=== PATIENT | female | born 2000 | race Caucasian/White ===

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

== ENCOUNTER 2020-05-01 07:25 | Inpatient (IN) | payer MEDICAID, SELFPAY ==
[2020-05-01] VITALS (70 sets, daily range): BP systolic 0–145; BP diastolic 0–82; PULSE 76–114; RESP 16–20; TEMP 36.2–36.8; O2SAT 96–99; BMI 35.6
[2020-05-01 05:28] LABS: Amphetamines Screen Urine Negative (Negative); Barbiturates Screen Urine Negative (Negative); Benzodiazepines Screen Urine Negative (Negative); Cocaine Screen Urine Negative (Negative); Opiate Screen Urine Negative (Negative); PCP Screen Urine Negative (Negative); THC Screen Urine Negative (Negative)
[2020-05-01 08:03] LABS: Basophils # 0.1 10^3/uL (0.0-0.1); Basophils % 0.3 %; Eosinophils % 0.2 %; Hematocrit 36.5 % (37.0-47.0); Hemoglobin 12.2 g/dL (11.5-15.3); Lymphocytes % 9.7 %; Mean Corpuscular HGB Conc 33.4 g/dL (30.0-36.0); Mean Corpuscular Volume 89.9 fL (81-99); Monocytes # 1.1 10^3/uL (0.2-0.9); Monocytes % 5.5 %; Neutrophils # 17.4 10^3/uL (1.8-8.0); Neutrophils % 83.7 %; Nucleated Red Blood Cells % 0 %; Platelet Count 209 10^3/cmm (130-400); Red Blood Count 4.06 10^6/uL (4.1-5.3); Red Cell Distribution Width 13.1 % (12.1-15.1); White Blood Count 20.8 10^3/uL (4.5-13.0)
--- NOTE | 2020-05-01 08:43 | P.HP_ITS ---
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 Originally she had expressed a desire to have a trial of labor even though she had a previous . After having contractions this morning, she changed her mind and wishes to have a C- section instead. Her has been remarkable for having THC positive drug screens. She currently is working with [employer] to get custody of her previous child . She is going to rehab at this time as well and has been free of any marijuana in her system for the majority of her . Present Details : 2 Para: 1 Labs Rubella: Immune RPR: Negative GBS: Negative Review of Systems General: Reports: 10 or more systems reviewed and unremarkable except in HPI and below Const: Reports: fatigue; Denies: fever(s) Eyes: Denies: change in vision Card: Denies: chest pain : Reports: pelvic pain Musc: Reports: back pain Nando/Lymph: Denies: easy bruising Medications/Allergies Allergies Allergy/AdvReac Type Severity Reaction Status Date / Time azithromycin [From Zithromax] Allergy ALGY-Rash Verified 05/01/20 05:23 Vitals/I&O/Wt Last Vital Signs Temp 98.3 F 05/01/20 04:59 Pulse 97 05/01/20 08:39 BP 145/60 05/01/20 08:39 Weight last 48 hrs Weight 221 lb Physical Exam Const: COMMON NORMALS: patient oriented x3 and alert HENMT: COMMON NORMALS: moist oral mucous membranes HEAD & SCALP: normal to inspection Chest: COMMONS NORMALS: normal inspection of the chest Resp: COMMON NORMALS: clear to auscultation bilaterally AUSCULTATION: clear to auscultation bilaterally Cardio: COMMON NORMALS: regular rate and regular rhythm RATE: regular rate RHYTHM: regular rhythm GI: INSPECTION: Yes normal to inspection and Yes other (Gravid) Extremity: COMMON NORMALS: normal to inspection GENERAL: Yes edema (Trace) Neuro: COMMON NORMALS: patient oriented x3, moves all extremities and no sensory deficits noted SENSORIUM/ORIENTATION: Yes alert Psych: COMMON NORMALS: mental status grossly normal Skin: COMMON NORMALS: no rashes or lesions noted GENERAL SKIN EXAM: no rashes or lesions noted Data : 05/01/20 07:35 A&P Assessment and plan (1) 40 weeks gestation of : We discussed the risks of a good and the risk of bleeding, infection, and damage to intra-abdominal organs. Both she and her significant other agreed to proceed with a as described. Status: Acute (2) History of : Status: Acute (3) Positive urine drug screen: Status: Acute (4) Active labor at term: Status: Acute Attestations Medical Necessity Statement*: I anticipate routine and [id number] care Coding Level of Care Code Acute Technical Account Executive for Chg Fwd Diagnoses 40 weeks gestation of Z3A.40 History of Z98.891 Positive urine drug screen R82.5 Active labor at term
[2020-05-01] MEDS: lactated ringers 1,000 ML 999 ML IV ×2 (08:53→11:12)
--- NOTE | 2020-05-01 08:54 | P.ANESASSM_ITS ---
Pre-Anesthetic Assessment Pre-Anesthetic Assessment: Height/Weight: Height 1.68 m Weight 100.244 kg Temp Pulse BP 98.3 F 97 0/0 05/01/20 04:59 05/01/20 08:39 05/01/20 08:52 Social: Social History: Tobacco and No alcohol Exam: Pre-Anes Outpt Exam: alert, oriented x 3, clear to auscultation bilaterally and regular rate & rhythm Airway: Submandibular: WNL Cervical ROM: WNL MP: 2 Dentition: Other (teeth ok) History/ROS: No significant history except as noted Pulmonary: Pulmonary: Asthma CV/HEM: CV/HEM: None reported : : None reported Hepatic: Hepatic: None reported GI: GI: GERD Metabolic: Metabolic: None reported Musc/skel: Musc/skel: None reported Neuropsych: Neuropsych: Anxiety and Depression Anesthetic Plan: ASA status: 2 Anesthesia: Anesthesia Evaluation and Eval. for regional block Risk of > 500 ml blood loss (7ml/kg in children): Yes, adequate IV access and fluids planned Meds/Allergies Current Medications: Current Medications Generic Name Dose Route Start Last Admin Trade Name Freq PRN Reason Stop Dose Admin Lactated Ringer's 1,000 mls @ 999 m ls/hr 05/01/20 07:52 05/01/20 08:53 Lactated Ringers IV 999 mls/hr .Q1H1M PRN Administration HYDR Ropivacaine 200 mg in 100 mls @ 13 mls/hr 05/01/20 08:00 05/01/20 08:54 Naropin Premix EPIDURAL 13 mls/hr .Q7H42M JOSE Administration ON LICENSE OF [facility] Anesthesia Female Reproductive History: : 2 Data Anesthesia CBC & Chem 7: 05/01/20 07:35 Other Labs: Laboratory Results - last 48 hr 05/01/20 05/01/20 05:15 07:35 WBC 20.8 H RBC 4.06 L Hgb 12.2 Hct 36.5 L MCV 89.9 MCH 30.0 MCHC 33.4 RDW 13.1 Plt Count 209 MPV 12.0 H Neut % (Auto) 83.7 Lymph % (Auto) 9.7 [place] % (Auto) 5.5 Eos % (Auto) 0.2 Baso % (Auto) 0.3 Neut # (Auto) 17.4 H Lymph # (Auto) 2.0 [place] # (Auto) 1.1 H Eos # (Auto) 0.0 Baso # (Auto) 0.1 Nucleated RBC % (auto) 0 Nucleated RBCs # 0.0 Urine Opiates Screen Negative Ur Barbiturates Screen Negative Ur Phencyclidine Scrn Negative Ur Amphetamines Screen Negative U Benzodiazepines Scrn Negative Urine Cocaine Screen Negative U Marijuana (THC) Screen Negative Cardiac Studies: No Data to Display
--- NOTE | 2020-05-01 09:15 | ANES.PROC ---
Anesthesia Procedures Procedure/Date: 05/01/20 Epidural: Time Out Performed: Yes Consents Signed: Procedure Consent Consent: requested by attending/covering physician, risks and benefits reviewed and patient agrees to proceed Lumbar Level: L4-L5 Epidural position: sitting Epidural procedure: sterile prep of area, 1% lidocaine to numb the area, 18 g needle, test dose given, 1.5% xylocaine 1:200k epi (5ml), placed PCEA, no systemic response, sterile dressing applied, L.U.D. no apparent complications and 0.2% Ropiavacaine @ mls/hr (13)
[2020-05-01] MEDS: metoclopramide 5 mg/mL SDV 2 mL 10 MG IV (11:10)
[2020-05-01] MEDS: famotidine 20 mg/2 mL INJ IVP (11:11)
--- NOTE | 2020-05-01 12:29 | PM.OP ---
Operative Report Date of procedure: May 01, 2020 Pre-op Diagnosis: 19-year-old 2 para 1-0-0-1 with an estimated gestational age of 40 weeks in active labor with history of Post-op diagnosis: same Procedure Done: Lower transverse section Specimens removed/disposition: Male infant with a weight of 7 pounds 7-1/2 ounces and Apgars of 8 9 2. Placenta with three-vessel cord delivered intact Anesthesia: Epidural Estimated blood loss (mL): 600 Complications: None Condition: stable Disposition: floor (OB) Brief History: Refer to history and physical Procedure: The patient was brought back to the operating room where she was prepped and draped in usual sterile fashion. Anesthesia was found to be adequate. A lower transverse skin incision was then made with a #10 blade. I then dissected down to the underlying subcutaneous tissue until arriving at the prerectal fascia. The fascia was then nicked with the scalpel bilaterally. The fascial incisions were then carried laterally with Olivo scissors. Attention was then turned to the superior aspect of the incision which was grasped with kochers and tented up away from the underlying rectus abdominis muscles. The muscles were then dissected away from the fascia manually, and later with Olivo scissors. Attention was then turned to the inferior aspect of the incision, and the fascia was dissected away from the underlying muscle in similar fashion. The rectus abdominis muscles were then spread manually. The peritoneum was entered manually. Excellent visualization of the uterus was noted. A lower transverse uterine incision was then made with a #10 blade. Upon arriving at the intrauterine cavity, the uterine incision was then extended manually. The was noted to be in vertex position. Despite multiple attempts, we had difficulty delivering the baby's head. As result I use a vacuum. It was placed for about 10 seconds to remove the child. After delivery of the head, the mouth and nose were suctioned at the site of the incision. There was no meconium. There was no nuchal cord. The remainder of the body was then delivered and placed on the abdomen. The cord was cut and clamped. The baby was then handed to the waiting nurse. The placenta was removed intact. The uterus was externalized. The intrauterine cavity was cleansed of any remaining debris. The uterine incision was reapproximated in 2 layers. The first layer was performed with 0 Vicryl in a running locked stitch. The second layer was an imbricating stitch also using 0 Vicryl. The uterus was replaced into the abdomen. The peritoneum was then irrigated with warm saline. I reexamined the uterine incision and found it to be hemostatic. The rectus abdominis muscles were then reapproximated using 0 Vicryl in a running stitch. The fascia was then reapproximated using 0 Vicryl in running stitch. The subcutaneous tissue was then reapproximated using 0 Vicryl in a running stitch. The skin was reapproximated using donell. A sterile dressing was placed. All counts were correct x2. Both the mother and baby were in stable condition.
--- NOTE | 2020-05-01 17:43 | PC.NURSE ---
THEY DO NOT HAVE CUSTODY OF OLDER CHILD AND HAS OPEN DFS CASE ON HIM.
--- NOTE | 2020-05-01 18:02 | PC.NURSE ---
1745 PT UP TO CHAIR, PADS CHANGED.ENCOURAGED HER TO FEED HER BABY, TOLD HER IF SHE HAD TROUBLE GETTING HIM TO EAT TO CALL ME SINCE HE HAS NOT EATEN SINCE 1330. PT VOICED UNDERSTANDING.
[2020-05-01] MEDS: ketorolac 30 mg/mL INJ IVP (20:01)
[2020-05-02 00:42] LABS: Hematocrit 31.4 % (37.0-47.0); Hemoglobin 10.2 g/dL (11.5-15.3); Mean Corpuscular HGB Conc 32.5 g/dL (30.0-36.0); Mean Corpuscular Hemoglobin 29.8 pg (28.0-34.0); Mean Corpuscular Volume 91.8 fL (81-99); Mean Platelet Volume 11.6 fL (7.4-10.4); Platelet Count 181 10^3/cmm (130-400); Red Blood Count 3.42 10^6/uL (4.1-5.3); Red Cell Distribution Width 13.2 % (12.1-15.1); White Blood Count 21.4 10^3/uL (4.5-13.0)
[2020-05-02 02:20] VITALS: BP 99/59; PULSE 92; RESP 16
[2020-05-02 06:00] VITALS: BP 108/69; PULSE 84; RESP 16; TEMP 36.7; O2SAT 98
[2020-05-02] MEDS: prenatal vitamin Capsule 1 CAP PO (09:07)
[2020-05-02] MEDS: docusate sodium 100 mg Capsule PO (09:07)
[2020-05-02 10:00] VITALS: BP 107/72; PULSE 94; RESP 16; TEMP 36.6; O2SAT 97
--- NOTE | 2020-05-02 11:47 | ANE.PACU2 ---
Inpatient post-anesthesia follow up: Airway intact: Yes Vital signs: Temperature 98.1 F Pulse Rate 84 Respiratory Rate 16 Blood Pressure 108/69 Pulse Oximetry 98 Oxygen Delivery Me thod Room Air Oxygen Flow Rate Fraction of Inspir ed Oxygen Hydration adequate: No Nausea and vomiting: No Mental status: Baseline
[2020-05-02 15:42] VITALS: BP 104/62; PULSE 101; RESP 16; TEMP 36.4; O2SAT 97
--- NOTE | 2020-05-02 16:59 | PM.OBGYPN ---
WAREHOUSE SORTER Subjective Subjective: Interval history: The patient is doing well. Her bleeding has been minimal. Her pain has been moderate. She has been moving some with some encouragement from the nurses. Labor: Station: -3 Amniotic Membrane Status: Bulging Monitor Mode: External Contraction Pattern: Regular Status: Category l Vitals/I&O/Wt Last Vital Signs Temp 97.5 F L 05/02/20 15:42 Pulse 101 H 05/02/20 15:42 Resp 16 05/02/20 15:42 BP 104/62 05/02/20 15:42 Pulse Ox 97 05/02/20 15:42 05/02/20 05/02/20 05/02/20 06:59 14:59 22:59 Output Total 1050 / 2300 900 / 900 300 / 1200 Balance -1050 / -300 -900 / -900 -300 / -1200 Weight last 48 hrs Weight 221 lb Physical Exam Narrative: EXAM NARRATIVE: She is in no acute distress Lungs are clear auscultation bilaterally Her heart has a regular rate and rhythm Her fundus is below the umbilicus and firm Her dressing is clean, dry and intact Her extremities have trace edema Urinary Catheter Management^: Cervantes: Cath Placed During This Visit: yes Reason for Continuing Indwelling Catheter: Perioperative Use in Selected Surgeries Urinary Catheter Date of Insertion: 05/01/20 Urinary Catheter Time of Insertion: : Data : 05/02/20 00:31 A&P Assessment and plan (1) Status post : The patient appears to be recovering well from her . If all goes well anticipate she will be discharged home tomorrow afternoon. Status: Acute (2) 40 weeks gestation of : Status: Acute Attestations Medical Necessity Statement*: Anticipate routine post care. Coding Level of Care Code Acute Sewage Screen Operator for Chg Fwd Diagnoses Status post Z98.891 40 weeks gestation of Z3A.40
[2020-05-02 22:45] VITALS: BP 108/67; PULSE 92; RESP 18
[2020-05-03] MEDS: acetaminophen 325 mg Tablet 650 MG PO ×2 (02:23→12:22)
[2020-05-03 04:39] VITALS: BP 111/68; PULSE 94; RESP 17
--- NOTE | 2020-05-03 07:58 | PM.OBGYDC ---
Discharge Providers AUTHORIZATION MANAGER Date of Admission: 05/01/20 07:25 Date of Discharge: 05/03/20 Attending Provider at Admission: Noah Shileds MD Attending Provider at Discharge: Noah Shields MD Primary Care Provider: Noah Shields MD Diagnoses at Discharge Discharge Diagnosis (1) Status post : Status: Acute (2) 40 weeks gestation of : Status: Acute Reason for Visit Reason for Visit: Contractions Hospital Course Discharge Summary: The patient is a 19-year-old 2 with a history of a previous who presented to the hospital in active labor. Shortly after arriving, she decided that she did not want to proceed with her . As result she was scheduled for a . The was unremarkable. Her course is also been unremarkable. She has had minimal bleeding. Her pain is been moderately well controlled. Her vitals have been appropriate. DFS was contacted because she does have a history of THC positive drug screens. She elected to see them at her home. Information Peripartum Data: Delivery Method: Section Physical Exam Narrative: EXAM NARRATIVE: She is in no acute distress Lungs are clear auscultation bilaterally Her heart has a regular rate and rhythm Her fundus is below the umbilicus and firm Her dressing is clean, dry and intact Her extremities have trace edema Urinary Catheter Management^: Cervantes: Cath Placed During This Visit: yes Reason for Continuing Indwelling Catheter: Perioperative Use in Selected Surgeries Urinary Catheter Date of Insertion: 05/01/20 Urinary Catheter Time of Insertion: 09:20 Discharge Data Vitals: Last Vital Signs Temp 97.5 F L 05/02/20 15:42 Pulse 94 05/03/20 04:39 Resp 17 05/03/20 04:39 BP 111/68 05/03/20 04:39 Pulse Ox 97 05/02/20 15:42 Discharge Plan Discharge Patient Disposition: Home, Self-Care Condition: Stable Discharge Orders: Discharge Order (Routine); Ordered 05/03/20 Ordered By: Noah Shields Referrals: Noah Shields MD [Primary Care Provider] - 4-7 days Discharge Diet: Usual diet Discharge Activity: Limit activity as instructed Discharge Attestations AUTHORIZATION MANAGER Time Spent in Discharge Care*: less than 30 min Coding Level of Care Code Acute International Banker for Chg Fwd Diagnoses Status post Z98.891 40 weeks gestation of Z3A.40
[2020-05-03] MEDS: prenatal vitamin Capsule 1 CAP PO (08:33)
[2020-05-03] MEDS: ferrous sulfate EC 325 mg Tablet PO (08:33)
[2020-05-03 09:45] VITALS: BP 106/67; PULSE 84; RESP 16; TEMP 36.9
[2020-05-03 15:56] VITALS: BP 121/78; PULSE 84; RESP 16; TEMP 36.6
[2020-05-03 16:45] VITALS: BP 121/78; PULSE 84; RESP 16; TEMP 36.6
== END 2020-05-03 17:45 | disposition home or self-care (01) | DRG 788 ==
LOC: OPOB 08:27 → OBGYN 08:27
PROVIDERS: Admitting Provider Family Medicine; PCP Family Medicine; Visit Provider Family Medicine
PROC: 10D00Z1 Extraction of Products of Conception, Low, Open Approach (ICD-10-PCS; CPT 59514; principal; 2020-05-01 11:30)
DX: O34.219 Maternal care for unspecified type scar from previous cesarean delivery (principal); Z3A.40 40 weeks gestation of pregnancy; Z37.0 Single live birth; O99.334 Smoking (tobacco) complicating childbirth; F17.210 Nicotine dependence, cigarettes, uncomplicated
CPT/HCPCS: 12345; 36415; 51702; 59025; 59409; 80306; 85025; 85027; 96375; 99211; J0330; J0690; J1100; J1885; J2001; J2250; J2274; J2405; J2590; J2704; J2765; J2795; J3010; J3490

== ENCOUNTER → 2020-05-29 16:58 | Outpatient (BNVA) | payer MEDICAID, SELFPAY | PROVIDERS: PCP Family Medicine; Visit Provider Registered Nurse | DX: Z20.2 Contact with and (suspected) exposure to infections with a predominantly sexual mode of transmission (principal) | CPT/HCPCS: 87491; 87591; 87661 ==

== ENCOUNTER → 2020-08-02 16:25 | Outpatient (BNVA) | payer MEDICAID, SELFPAY | PROVIDERS: PCP Family Medicine; Visit Provider Registered Nurse | DX: Z30.9 Encounter for contraceptive management, unspecified (principal) | CPT/HCPCS: 81025 ==

== ENCOUNTER → 2020-10-23 11:22 | Outpatient (BNVA) | payer MEDICAID, SELFPAY | PROVIDERS: PCP Family Medicine; Visit Provider Registered Nurse | DX: Z30.9 Encounter for contraceptive management, unspecified (principal) | CPT/HCPCS: 81025 ==

== ENCOUNTER → 2021-01-07 12:59 | Outpatient (BNVA) | payer MEDICAID, SELFPAY | PROVIDERS: PCP Family Medicine; Visit Provider Psychiatry & Neurology Psychiatry | DX: F60.3 Borderline personality disorder (principal); F33.2 Major depressive disorder, recurrent severe without psychotic features; F41.1 Generalized anxiety disorder; F17.200 Nicotine dependence, unspecified, uncomplicated; F12.20 Cannabis dependence, uncomplicated | CPT/HCPCS: 99204 ==

== ENCOUNTER → 2021-04-11 15:08 | Outpatient (BNVA) | payer MEDICAID, SELFPAY | PROVIDERS: PCP Registered Nurse; Visit Provider Psychiatry & Neurology Psychiatry | DX: F41.1 Generalized anxiety disorder (principal); F33.2 Major depressive disorder, recurrent severe without psychotic features; F15.21 Other stimulant dependence, in remission; F12.20 Cannabis dependence, uncomplicated; F17.200 Nicotine dependence, unspecified, uncomplicated; F60.3 Borderline personality disorder | CPT/HCPCS: 99214 ==

== ENCOUNTER → 2021-06-10 08:30 | Outpatient (BNVA) | payer MEDICAID, SELFPAY | PROVIDERS: PCP Registered Nurse; Visit Provider Registered Nurse | DX: R73.9 Hyperglycemia, unspecified (principal); I10 Essential (primary) hypertension; R53.83 Other fatigue; R11.2 Nausea with vomiting, unspecified; Z79.899 Other long term (current) drug therapy | CPT/HCPCS: 80053; 81000; 84443; 85025 ==

== ENCOUNTER → 2021-06-21 09:28 | Outpatient (BNVA) | payer OTHER, SELFPAY | PROVIDERS: PCP Registered Nurse; Visit Provider Psychiatry & Neurology Psychiatry | DX: F41.1 Generalized anxiety disorder (principal); F33.2 Major depressive disorder, recurrent severe without psychotic features; F15.21 Other stimulant dependence, in remission; F12.20 Cannabis dependence, uncomplicated; F17.200 Nicotine dependence, unspecified, uncomplicated; F60.3 Borderline personality disorder | CPT/HCPCS: 99213 ==

== ENCOUNTER → 2021-10-08 08:45 | Outpatient (BNVA) | payer OTHER, SELFPAY | PROVIDERS: PCP Registered Nurse; Visit Provider Psychiatry & Neurology Psychiatry | DX: F41.1 Generalized anxiety disorder (principal); F33.2 Major depressive disorder, recurrent severe without psychotic features; F15.21 Other stimulant dependence, in remission; F17.200 Nicotine dependence, unspecified, uncomplicated; F60.3 Borderline personality disorder | CPT/HCPCS: 99213 ==

== ENCOUNTER → 2022-01-07 07:42 | Outpatient (BNVA) | payer OTHER, MEDICAID, SELFPAY | PROVIDERS: PCP Registered Nurse; Visit Provider Psychiatry & Neurology Psychiatry | DX: F15.21 Other stimulant dependence, in remission (principal); F12.20 Cannabis dependence, uncomplicated; F17.200 Nicotine dependence, unspecified, uncomplicated; F41.1 Generalized anxiety disorder; F33.2 Major depressive disorder, recurrent severe without psychotic features; F60.3 Borderline personality disorder; L30.9 Dermatitis, unspecified; J30.89 Other allergic rhinitis | CPT/HCPCS: 99214 ==

== ENCOUNTER → 2022-02-18 16:20 | Outpatient (BNVA) | payer MEDICAID, SELFPAY | PROVIDERS: PCP Registered Nurse; Visit Provider Registered Nurse | DX: Z79.3 Long term (current) use of hormonal contraceptives (principal) | CPT/HCPCS: 81025 ==

== ENCOUNTER → 2022-06-13 09:53 | Outpatient (BNVA) | payer MEDICAID, SELFPAY | PROVIDERS: PCP Registered Nurse; Visit Provider Nurse Practitioner Family | DX: N91.2 Amenorrhea, unspecified (principal); J45.20 Mild intermittent asthma, uncomplicated | CPT/HCPCS: 81025 ==

== ENCOUNTER 2023-06-29 23:56 | Emergency (ER) | payer MEDICAID, SELFPAY ==
[2023-06-30 00:02] VITALS: BP 136/73; PULSE 70; RESP 16; TEMP 36.7; O2SAT 100; BMI 29.9
--- NOTE | 2023-06-30 00:12 | ED_ITS ---
HPI - General: Chief complaint: OB/Uterine Contractions Stated complaint: bleeding Time Seen by Provider: 06/29/23 23:57 Source: patient Mode of arrival: ambulatory Limitations: no limitations History of Present Illness: 22-year-old female states she believes she is roughly 4 to 5 weeks but she is unsure how far along she is she had a home test were positive states she had some bleeding started 3 hours ago passed some slight clots had some slight abdominal cramping she denies any severe pain denies any fever denies any vomiting diarrhea Date of Last Menstrual Period: 05/30/23 Associated symptoms: Reports abdominal pain; Deny headache(s), nausea or vomiting Review of Systems Const: Denies: fever(s), chills, body aches or change in appetite Eyes: Denies: blurry vision or eye discomfort ENMT: Denies: throat pain or dental pain Card: Denies: chest pain Resp: Denies: dyspnea GI: Reports: abdominal pain; Denies: nausea, vomiting or diarrhea : Reports: vaginal bleeding Musc: Denies: neck pain or back pain Skin/Breast: Denies: rash Neuro: Denies: headache(s) PFSH ED PFSH: Medical History Depression with anxiety Social History Smoking and tobacco status: current every day smoker cigarettes Packs smoked per day: 1 Years cigarettes smoked: 11 Quit status (tobacco): has tried quititng Number of times tried to quit tobacco: 1 Second hand smoke exposure: Yes Alcohol intake: never Substance/Drug Use: current Substance/Drug use frequency: daily Adopted: No Caregiver/support person: No Lives independently: No Current occupational status: employed Sexually active: Yes Do you think of yourself as: Straight/Heterosexual Current gender identity: Female Female Reproductive History: Date of last menstrual period: 05/30/23 Physical Exam Const: COMMON NORMALS: no acute distress, patient oriented x3 and healthy appearing HENMT: COMMON NORMALS: normocephalic and atraumatic HEAD & SCALP: normocephalic and atraumatic Eye: COMMON NORMALS: conjunctivae normal CONJUNCTIVA: Yes conjunctivae normal Neck/C-Spine: COMMON NORMALS: full ROM and supple Chest: COMMONS NORMALS: normal inspection of the chest Resp: COMMON NORMALS: normal respiratory effort Cardio: COMMON NORMALS: regular rate, regular rhythm and No murmurs present (Cardio) RATE: regular rate RHYTHM: regular rhythm GI: COMMON NORMALS: Normal to inspection, nondistended, normoactive bowel sounds present, Soft to palpation, non-tender and no masses PALPATION: Yes Soft to palpation Extremity: COMMON NORMALS: normal to inspection and full ROM Neuro: COMMON NORMALS: patient oriented x3, moves all extremities and no focal motor deficits Psych: COMMON NORMALS: mental status grossly normal, Normal thought process present and cooperative THOUGHT PROCESS: Normal thought process present Skin: COMMON NORMALS: no rashes or lesions noted and no wounds GENERAL SKIN EXAM: no rashes or lesions noted Course Vital Signs: Vital signs: Vital Signs Temperature 98.1 F 06/30/23 00:02 Pulse Rate 70 06/30/23 00:02 Respiratory Rate 16 06/30/23 00:02 Blood Pressure 136/73 06/30/23 00:02 Pulse Oximetry 100 06/30/23 00:02 Oxygen Delivery Me thod Room Air 06/30/23 00:02 MDM - OB/Uterine Contractions Medical Decision Making Patient presents here with concern for miscarriage her blood test here is negative she is likely having her menstruation she is well-appearing her hemoglobin is normal she is stable for discharge she is to follow-up with PCP and return if worsening Lab Data 06/30/23 00:15 Laboratory Results WBC 10.0 10^3/uL (4.0-10.0) 06/30/23 00:15 RBC 4.15 10^6/uL (4.1-5.3) 06/30/23 00:15 Hgb 12.9 g/dL (11.5-15.3) 06/30/23 00:15 Hct 39.1 % (37.0-47.0) 06/30/23 00:15 MCV 94.2 fl (81-99) 06/30/23 00:15 MCH 31.1 pg (28.0-34.0) 06/30/23 00:15 MCHC 33.0 g/dL (30.0-36.0) 06/30/23 00:15 RDW 12.0 % (12.1-15.1) L 06/30/23 00:15 Plt Count 212 10^3/cmm (130-400) 06/30/23 00:15 MPV 11.2 fL (7.4-10.4) H 06/30/23 00:15 Neut % (Auto) 56.9 % 06/30/23 00:15 Lymph % (Auto) 31.5 % 06/30/23 00:15 [place] % (Auto) 7.8 % 06/30/23 00:15 Eos % (Auto) 3.0 % 06/30/23 00:15 Baso % (Auto) 0.6 % 06/30/23 00:15 Neut # (Auto) 5.67 10^3/uL (1.8-7.7) 06/30/23 00:15 Lymph # (Auto) 3.1 10^3/uL (0.8-4.8) 06/30/23 00:15 [place] # (Auto) 0.8 10^3/uL (0.2-0.9) 06/30/23 00:15 Eos # (Auto) 0.3 10^3/uL (0.0-0.8) 06/30/23 00:15 Baso # (Auto) 0.1 10^3/uL (0.0-0.1) 06/30/23 00:15 Nucleated RBC % (auto) 0 % 06/30/23 00:15 Nucleated RBCs # 0.0 /100WBC 06/30/23 00:15 Ser , Semi-Qnt 1.00 mIU/mL 06/30/23 00:15 Discharge Plan Discharge Patient Disposition: Home Clinical Impression: Vaginal bleeding Condition: Stable Discharge Orders: Discharge ED (Routine); Ordered 06/30/23 Ordered By: Alma Rosa Marc Referrals: Michelle Whitney, JESSICA [Primary Care Provider] - Discharge Diet: Advance as tolerated Discharge Activity: Resume usual activity Patient Instructions: Abnormal (Dysfunctional) Uterine Bleeding (ED) Stand Alone Forms: Work/School Release Coding Level of Care Code ED Salon Leader for Carol Lua
[2023-06-30 00:24] LABS: Basophils # 0.1 10^3/uL (0.0-0.1); Basophils % 0.6 %; Eosinophils # 0.3 10^3/uL (0.0-0.8); Hematocrit 39.1 % (37.0-47.0); Hemoglobin 12.9 g/dL (11.5-15.3); Lymphocytes # 3.1 10^3/uL (0.8-4.8); Lymphocytes % 31.5 %; Mean Corpuscular Hemoglobin 31.1 pg (28.0-34.0); Mean Corpuscular Volume 94.2 fl (81-99); Mean Platelet Volume 11.2 fL (7.4-10.4); Monocytes # 0.8 10^3/uL (0.2-0.9); Monocytes % 7.8 %; Neutrophils # 5.67 10^3/uL (1.8-7.7); Neutrophils % 56.9 %; Nucleated Red Blood Cells % 0 %; Platelet Count 212 10^3/cmm (130-400); Red Blood Count 4.15 10^6/uL (4.1-5.3)
[2023-06-30 00:45] VITALS: BP 105/65; PULSE 66; O2SAT 97
[2023-06-30 01:00] VITALS: BP 123/69; PULSE 71; RESP 16; O2SAT 100
== END 2023-06-30 01:03 | disposition home or self-care (01) ==
PROVIDERS: Emergency Provider Emergency Medicine; PCP Registered Nurse
DX: N93.9 Abnormal uterine and vaginal bleeding, unspecified (principal); F17.210 Nicotine dependence, cigarettes, uncomplicated
CPT/HCPCS: 36415; 84702; 85025; 86850; 86900; 99283

== ENCOUNTER 2023-08-27 03:32 | Emergency (ER) | payer MEDICAID, SELFPAY ==
[2023-08-27 03:34] VITALS: BP 125/51; PULSE 96; RESP 18; TEMP 37.1; O2SAT 99; BMI 29.1
--- NOTE | 2023-08-27 03:39 | ED_ITS ---
HPI - Headache General: Chief Complaint: Headache Stated Complaint: HEADACHE Time Seen by Provider: 08/27/23 03:33 Source: patient Mode of arrival: ambulatory Limitations: no limitations History of Present Illness: 22-year-old female who states she believes she is roughly 5 to 6 weeks states that started having a headache yesterday evening its worsened throughout the night she also notes more back pain she denies any abdominal pain or vaginal bleeding. States her headaches currently an 8 out of 10 denies any vomiting or diarrhea. Associated symptoms: Deny chest pain, fever(s), nausea or vomiting Review of Systems Const: Denies: fever(s), chills, body aches or change in appetite Eyes: Denies: blurry vision or eye discomfort ENMT: Denies: throat pain or dental pain Card: Denies: chest pain Resp: Denies: dyspnea GI: Denies: abdominal pain, nausea, vomiting or diarrhea : Denies: dysuria Musc: Reports: back pain; Denies: neck pain Neuro: Reports: headache(s) All/Imm: Denies: urticaria PFSH ED PFSH: Medical History Depression with anxiety Social History Smoking and tobacco status: current every day smoker cigarettes Packs smoked per day: 1 Years cigarettes smoked: 11 Quit status (tobacco): has tried quititng Number of times tried to quit tobacco: 1 Second hand smoke exposure: Yes Alcohol intake: never Substance/Drug Use: current Substance/Drug use frequency: daily Adopted: No Caregiver/support person: No Lives independently: No Current occupational status: employed Sexually active: Yes Do you think of yourself as: Straight/Heterosexual Current gender identity: Female Physical Exam Const: COMMON NORMALS: no acute distress, patient oriented x3 and healthy appearing HENMT: COMMON NORMALS: normocephalic and atraumatic HEAD & SCALP: normocephalic and atraumatic Neck/C-Spine: COMMON NORMALS: full ROM and supple Chest: COMMONS NORMALS: normal inspection of the chest and normal palpation of entire chest wall Resp: COMMON NORMALS: normal respiratory effort, No retractions, No use of accessory muscles and clear to auscultation bilaterally AUSCULTATION: clear to auscultation bilaterally Cardio: COMMON NORMALS: regular rate, regular rhythm and No murmurs present (Cardio) RATE: regular rate RHYTHM: regular rhythm GI: COMMON NORMALS: Normal to inspection, nondistended, normoactive bowel sounds present, Soft to palpation, non-tender and no masses PALPATION: Yes Soft to palpation Extremity: COMMON NORMALS: normal to inspection and full ROM Neuro: COMMON NORMALS: patient oriented x3, moves all extremities and no focal motor deficits Psych: COMMON NORMALS: mental status grossly normal, Normal thought process present and cooperative THOUGHT PROCESS: Normal thought process present Skin: COMMON NORMALS: no rashes or lesions noted and no wounds GENERAL SKIN EXAM: no rashes or lesions noted Course Vital Signs: Vital signs: Vital Signs Temperature 98.7 F 08/27/23 03:34 Pulse Rate 92 08/27/23 04:50 Respiratory Rate 18 08/27/23 04:50 Blood Pressure 104/74 08/27/23 04:50 Pulse Oximetry 100 08/27/23 04:50 Oxygen Delivery Me thod Room Air 08/27/23 04:50 MDM - Headache Medical Decision Making Patient presents with headaches likely tension headache her headache here is resolved she has no signs of meningitis or subarachnoid hemorrhage she is she has no related complaints patient stable for discharge she is to follow-up with her OB and return if worsening. Urinalysis did show trichomonas treated here with Rocephin along with Flagyl. Medical Records I reviewed the patient's medical records. Lab Data I reviewed the patient's lab results. 08/27/23 03:44 08/27/23 03:44 Laboratory Results WBC 7.42 10^3/uL (3.29-11.43) 08/27/23 03:44 RBC 3.90 10^6/uL (3.85-5.65) 08/27/23 03:44 Hgb 12.10 g/dL (11.27-16.99) 08/27/23 03:44 Hct 35.4 % (36-47) L 08/27/23 03:44 MCV 90.8 fl (85-98) 08/27/23 03:44 MCH 31.0 pg (27-33) 08/27/23 03:44 MCHC 34.2 g/dL (30-55) 08/27/23 03:44 RDW 11.9 % (12.1-15.1) L 08/27/23 03:44 Plt Count 185 10^3/cmm (157-399) 08/27/23 03:44 MPV 10.9 fL (7.4-10.4) H 08/27/23 03:44 Neut % (Auto) 89.9 % 08/27/23 03:44 Lymph % (Auto) 3.9 % 08/27/23 03:44 [place] % (Auto) 5.4 % 08/27/23 03:44 Eos % (Auto) 0.0 % 08/27/23 03:44 Baso % (Auto) 0.3 % 08/27/23 03:44 Neut # (Auto) 6.67 10^3/uL (1.8-7.7) 08/27/23 03:44 Lymph # (Auto) 0.3 10^3/uL (0.8-4.8) L 08/27/23 03:44 [place] # (Auto) 0.4 10^3/uL (0.2-0.9) 08/27/23 03:44 Eos # (Auto) 0.0 10^3/uL (0.0-0.8) 08/27/23 03:44 Baso # (Auto) 0.0 10^3/uL (0.0-0.1) 08/27/23 03:44 Nucleated RBC % (auto) 0 % 08/27/23 03:44 Nucleated RBCs # 0.0 /100WBC 08/27/23 03:44 Sodium 136 mmol/L (136-145) 08/27/23 03:44 Potassium 3.5 mmol/L (3.5-5.1) 08/27/23 03:44 Chloride 102 mmol/L (98-107) 08/27/23 03:44 Carbon Dioxide 21 mmol/L (22-29) L 08/27/23 03:44 Anion Gap 16.5 (5-19) 08/27/23 03:44 BUN 9 mg/dL (6-20) 08/27/23 03:44 Creatinine 0.5 mg/dL (0.5-0.9) 08/27/23 03:44 GFR Calculation 154.3 mL/min (90-130) H 08/27/23 03:44 Glucose 132 mg/dL (65-115) H 08/27/23 03:44 Calculated Osmolality 283 mOsm/kg (285-295) L 08/27/23 03:44 Calcium 9.0 mg/dL (8.5-10.5) 08/27/23 03:44 HCG, Qual Positive (Negative) H 08/27/23 03:44 Urine Color Yellow (Yellow) 08/27/23 04:14 Urine Appearance Hazy (CLEAR) A 08/27/23 04:14 Urine pH 5 (5-7) 08/27/23 04:14 Ur Specific [place] 1.025 (1.005-1.030) 08/27/23 04:14 Urine Protein Neg (Negative) 08/27/23 04:14 Urine Glucose (UA) Norm (Normal) 08/27/23 04:14 Urine Ketones 1+ (Negative) H 08/27/23 04:14 Urine Blood Neg (Negative) 08/27/23 04:14 Urine Nitrate Negative (Negative) 08/27/23 04:14 Urine Bilirubin Neg (Negative) 08/27/23 04:14 Urine Urobilinogen Neg mg/dL (Negative) 08/27/23 04:14 Ur Leukocyte Esterase 1+ (Negative) H 08/27/23 04:14 Urine RBC None /hpf (0-2) 08/27/23 04:14 Urine WBC 5-10 /hpf (0-5) H 08/27/23 04:14 Ur Squamous Epith Cells 15-25 /hpf (0-5) H 08/27/23 04:14 Amorphous Sediment Not Reportable 08/27/23 04:14 Urine Bacteria 1+ /hpf (NONE) H 08/27/23 04:14 Urine Mucus 2+ /hpf 08/27/23 04:14 Urine Trichomonas 2+ /hpf H 08/27/23 04:14 No radiology studies performed this visit Discharge Plan Discharge Patient Disposition: Home Clinical Impression: Headache, Infection due to trichomonas Condition: Stable Discharge Orders: Discharge ED (Routine); Ordered 08/27/23 Ordered By: Alma Rosa Marc Referrals: Michelle Whitney, EXECUTIVE SECRETARY [Primary Care Provider] - 1-3 days Discharge Diet: Advance as tolerated Discharge Activity: Resume usual activity Patient Instructions: Trichomoniasis (ED), General Headache (ED) Coding Level of Care Code ED Humanities Coordinator for Carol Lua
[2023-08-27 03:48] LABS: Basophils % 0.3 %; Hematocrit 35.4 % (36-47); Lymphocytes # 0.3 10^3/uL (0.8-4.8); Lymphocytes % 3.9 %; Mean Corpuscular HGB Conc 34.2 g/dL (30-55); Mean Corpuscular Volume 90.8 fl (85-98); Mean Platelet Volume 10.9 fL (7.4-10.4); Monocytes # 0.4 10^3/uL (0.2-0.9); Monocytes % 5.4 %; Neutrophils # 6.67 10^3/uL (1.8-7.7); Neutrophils % 89.9 %; Nucleated Red Blood Cells % 0 %; Platelet Count 185 10^3/cmm (157-399); Red Cell Distribution Width 11.9 % (12.1-15.1); White Blood Count 7.42 10^3/uL (3.29-11.43)
[2023-08-27] MEDS: diphenhydrAMINE 50 mg/mL SDV 1mL IVP (03:50)
[2023-08-27] MEDS: metoclopramide 5 mg/mL SDV 2 mL 10 MG IVP (03:50)
[2023-08-27 03:59] LABS: HCG, Serum Qual Positive (Negative)
--- NOTE | 2023-08-27 04:00 | PC.NURSE ---
Nurse asked patient if she could produce a small urine specimen. Patient refused at this time, stating that she felt like she couldn't even try to go. Nurse informed patient that she would round again shortly, and see if patient could attempt to produce urine specimen; patient verbalized understanding at this time.
[2023-08-27 04:09] LABS: Anion Gap 16.5 (5-19); Blood Urea Nitrogen 9 mg/dL (6-20); Carbon Dioxide 21 mmol/L (22-29); Chloride 102 mmol/L (98-107); Glomerular Filtration Rate 154.3 mL/min (90-130); Glucose 132 mg/dL (65-115); Osmolality Calculated 283 mOsm/kg (285-295); Potassium 3.5 mmol/L (3.5-5.1); Sodium 136 mmol/L (136-145)
[2023-08-27 04:27] LABS: Glucose Urine UA Norm (Normal); Ketones Urine 1+ (Negative); Protein Urine Neg (Negative); Specific Gravity, Urine 1.025 (1.005-1.030); Urine Appearance Hazy (CLEAR); Urine Color Yellow (Yellow); pH Urine 5 (5-7)
[2023-08-27 04:28] LABS: Add Urine Microscopic? YES; Bilirubin Urine Neg (Negative); Blood Urine Neg (Negative); Leukocyte Esterase Urine 1+ (Negative); Nitrate Urine Negative (Negative); Urobilinogen Urine Neg (Negative)
[2023-08-27 04:29] LABS: Add Urine Culture? No; Bacteria Urine 1+ /hpf; Mucus Urine 2+ /hpf; Squamous Epithelial Cell Urine 15-25 /hpf (0-5); Trichomonas Urine 2+ /hpf
[2023-08-27 04:39] VITALS: RESP 18; O2SAT 100
[2023-08-27] MEDS: cefTRIAXone 1,000 MG in sodium chloride 0.9% (plus) 50 ML 100 MG IV (04:39)
[2023-08-27] MEDS: morphine 4 mg/mL SDV 1 mL IVP (04:39)
[2023-08-27] MEDS: metroNIDAZOLE 500 MG Tablet 2000 MG PO (04:40)
[2023-08-27 04:50] VITALS: BP 104/74; PULSE 92; RESP 18; O2SAT 100
[2023-08-27 05:15] VITALS: BP 104/47; PULSE 96; RESP 18; O2SAT 100
== END 2023-08-27 05:21 | disposition home or self-care (01) ==
PROVIDERS: Emergency Provider Emergency Medicine; PCP Registered Nurse
DX: O98.811 Other maternal infectious and parasitic diseases complicating pregnancy, first trimester (principal); A59.9 Trichomoniasis, unspecified; O26.891 Other specified pregnancy related conditions, first trimester; R51.9 Headache, unspecified; Z3A.01 Less than 8 weeks gestation of pregnancy; O99.331 Smoking (tobacco) complicating pregnancy, first trimester; F17.210 Nicotine dependence, cigarettes, uncomplicated
CPT/HCPCS: 80048; 81001; 84703; 85025; 96365; 96375; 99284; J0696; J1200; J2270; J2765

== ENCOUNTER 2024-03-25 04:52 | Inpatient (IN) | payer MEDICAID, SELFPAY ==
--- NOTE | 2024-03-18 14:02 | P.ANESASSM_ITS ---
Pre-Anesthetic Assessment Height/Weight: Height 1.65 m Operation Date: 03/25/24 07:20 Proposed Procedures p Section Repeat 09555 z34.83,z98.890(Not Applicable) - Noah Shields MD Social No alcohol and No tobacco Exam alert, oriented x 3, clear to auscultation bilaterally and regular rate & rhythm Airway Submandibular: within normal limits Cervical ROM: within normal limits Mallampati: Class I History/ROS No significant history except as noted Anesthetic Plan ASA status: 2 Anesthesia: Regional (specify below) Other: Plan SAB for C/S Medications/Allergies Allergies Allergy/AdvReac Type Severity Reaction Status Date / Time azithromycin [From Zithromax] Allergy Intermediate ALGY-Rash Verified 08/27/23 03:39 aloe vera Allergy Unknown Unknown Verified 08/27/23 03:39 coconut Allergy Unknown Unknown Verified 08/27/23 03:39 [facility] Anesthesia Medical History Depression with anxiety Social History Smoking and tobacco/nicotine status: current every day tobacco/nicotine user cigarettes Packs smoked per day: 1 Years cigarettes smoked: 11 Quit status (tobacco/nicotine): has tried quititng Number of times tried to quit tobacco: 1 Second hand smoke exposure: Yes Alcohol intake: never Substance/Drug Use: current Substance/Drug use frequency: daily Adopted: No Caregiver/support person: No Lives independently: No Current occupational status: employed Sexually active: Yes Do you think of yourself as: Straight/Heterosexual Current gender identity: Female Data Anesthesia Cardiac Studies: No Data to Display
[2024-03-25] VITALS (34 sets, daily range): BP systolic 94–131; BP diastolic 44–88; PULSE 55–95; RESP 12–18; TEMP 35.3–36.7; O2SAT 97–100; BMI 35.4
--- OUTSIDE RECORDS SUMMARY | 2024-03-25 04:55 | XMS_ITS | Continuity of Care Document ---
Author Name Unknown Organization [facility] Address [id number] [address] Phone Care Team Providers Care Distribution Agent Name Role Phone Unavailable Unavailable Unavailable Allergies, Adverse Reactions, Alerts Substance Reaction Status Criticality azithromycin Active No Information Medications Medication Instructions Dosage Effective Dates (start - stop) Status Comments [place] 7.5 mg-325 mg tablet take 1 tablet by oral route every 6 hours as needed 1 tablet - Active Periogard 0.12 % mouthwash swish with one capful for 30 seconds then spit out. Twice a day. DO NOT EAT OR DRINK FOR ONE HOUR FOLLOWING. - Active 1 Bottle Procedures Procedure Date Removal Of Impacted Tooth ??? Completely Bony Removal Of Impacted Tooth ??? Completely Bony Removal Of Impacted Tooth ??? Completely Bony Surgical Removal Of Erupted Tooth Requir ing Elevat Surgical Removal Of Erupted Tooth Requir ing Elevat IV Moderate (conscious) Sedation/analges ia, 15 Min IV Moderate (conscious) Sedation/analges ia, 15 Min IV Moderate (conscious) Sedation/analges ia, 15 Min No Work Today/No Charge EDR Approval Note Limited Oral Evaluation ??? Problem Focu sed Panoramic Film EDR Approval Note Advance Directives Directive Yes / No Effective Date File Name No Information Encounters Encounter Description Practice Location Reason(s) For Visit Diagnoses Date Provider Providers Copied on Encounter [facility], [id number] [facility], [place], [place], [id number], [place] tel:[phone] [facility] Encounter for dental exam and cleaning w/o abnormal findings No Information [facility], [id number] [facility], [place], [place], [id number], [place] tel:[phone] [facility] Encounter for dental exam and cleaning w/o abnormal findings No Information [facility], [id number], [place], [place], [id number], [place] tel:[phone] [facility] Encounter for dental exam and cleaning w/o abnormal findings No Information Family History Family Member Type Diagnosis Age At Onset No Information Payers Payer name Insurance type Covered constitution party ID Teganpatrizia talialacie(s) D Medicaid [id number] Social History Type Description Quantity Date Captured Comments Alcohol Use Details No Caffeine Use Details Unknown Tobacco Use Status Moderate cigarette smoker (10-19 cigs/day) Smoking Status Heavy tobacco smoker Smoking Tobacco Use Details Cigarette: No Details Available Cigarette: 0 Packs per day Sex Female Gender Identity Female Chief Complaint And Reason For Visit No Information Reason For Referral Reason For Referral No Information Plan Of Treatment Date Type Action Status Goal Tobacco cessation counseling completed Goal Tobacco cessation counseling completed History Of Present Illness Encounter Date Complaint History Of Prese nt Illness No Information Functional Status Date Functional Assessmen t No Information Instructions Date Instruction Additional Infor mation Lifestyle education Related to D ental Examination Lifestyle education Related to D ental Examination Assessments Type Assessment Date assessment Encounter for dental exam and cl eaning w/o abnormal findings Patient Care Teams Name Effective Dates (start - stop) Status Members No Information
[2024-03-25 05:51] LABS: Basophils # 0.1 10^3/uL (0.0-0.1); Basophils % 0.4 %; Eosinophils # 0.1 10^3/uL (0.0-0.8); Hematocrit 36.2 % (36-47); Lymphocytes # 2.8 10^3/uL (0.8-4.8); Lymphocytes % 20.2 %; Mean Corpuscular HGB Conc 32.6 g/dL (30-55); Mean Corpuscular Hemoglobin 29.8 pg (27-33); Mean Corpuscular Volume 91.4 fl (85-98); Mean Platelet Volume 11.3 fL (7.4-10.4); Monocytes # 0.9 10^3/uL (0.2-0.9); Monocytes % 6.5 %; Neutrophils # 9.87 10^3/uL (1.8-7.7); Neutrophils % 70.8 %; Nucleated Red Blood Cells % 0 %; Platelet Count 195 10^3/cmm (157-399); Red Blood Count 3.96 10^6/uL (3.85-5.65); Red Cell Distribution Width 13.2 % (12.1-15.1); White Blood Count 13.94 10^3/uL (3.29-11.43)
[2024-03-25] MEDS: lactated ringers 1,000 ML 999 ML IV (06:05)
--- NOTE | 2024-03-25 06:41 | ANES.PREANE2 ---
Pre-Anesthetic Assessment Height/Weight: Height 1.65 m Weight 96.615 kg O2 Del Method Room Air 03/25/24 06:00 Operation Date: 03/25/24 07:50 Proposed Procedures p Section Repeat 66626 z34.83,z98.890(Not Applicable) - Noah Shields MD Familial anesthetic complications: None Was Beta Brant taken within 24 hours: N/A Was Clonidine taken within 24 hours: N/A Last intake: 2100 food and liquid Social Tobacco and No alcohol 0.5 pack(s) per day Exam alert, oriented x 3, clear to auscultation bilaterally and regular rate & rhythm Airway Submandibular: within normal limits Cervical ROM: within normal limits Mallampati: Class II Dentition: full Comments: Comments: Several broken teeth History/ROS No significant history except as noted and No significant complaints Pulmonary Asthma (Reactive airway) CV/HEM None reported None reported Hepatic None reported GI Gastroesophageal Reflux Disease (d/t ) Metabolic None reported Musc/skel None reported Neuropsych Anxiety, Depression and Headache (Chronic headaches) Anesthetic Plan ASA status: 2 Anesthesia: Anesthesia Evaluation and Regional (specify below) (SAB) Risk of > 500 ml blood loss (7ml/kg in children): Yes, adequate IV access and fluids planned Medications/Allergies Allergies Allergy/AdvReac Type Severity Reaction Status Date / Time azithromycin [From Zithromax] Allergy Intermediate ALGY-Rash Verified 03/25/24 06:40 aloe vera Allergy Unknown Unknown Verified 03/25/24 06:40 coconut Allergy Unknown Unknown Verified 03/25/24 06:40 [facility] Anesthesia Medical History Depression with anxiety Social History Smoking and tobacco/nicotine status: current every day tobacco/nicotine user cigarettes Packs smoked per day: 1 Years cigarettes smoked: 11 Quit status (tobacco/nicotine): has tried quititng Number of times tried to quit tobacco: 1 Second hand smoke exposure: Yes Alcohol intake: never Substance/Drug Use: current Substance/Drug use frequency: daily Adopted: No Caregiver/support person: No Lives independently: No Current occupational status: employed Sexually active: Yes Do you think of yourself as: Straight/Heterosexual Current gender identity: Female Female Reproductive History : 3 Data Anesthesia 03/25/24 05:35 03/25/24 05:35 Short CBC 03/25/24 Range/Units 05:35 WBC 13.94 H (3.29-11.43) 10^3/uL Hgb 11.80 (11.27-16.99) g/dL Hct 36.2 (36-47) % MCV 91.4 (85-98) fl Plt Count 195 (157-399) 10^3/cmm Neut % (Auto) 70.8 % Neut # (Auto) 9.87 H (1.8-7.7) 10^3/uL Cardiac Studies: No Data to Display
--- NOTE | 2024-03-25 06:48 | P.HP_ITS ---
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 The patient has had 2 previous sections. Her is otherwise been relatively unremarkable. She has been positive for marijuana on multiple drug tests. Her blood type is a positive. Her antibody screen is negative. She is HPV positive. She is GBS negative. She passed her glucose screen. She is rubella immune. The remainder of her infectious disease profile is within normal limits. Present Details : 3 Para: 2 Labs Rubella: Immune GBS: Negative Review of Systems 2 General: Reports: 10 or more systems reviewed and unremarkable except in HPI and below Const: Reports: fatigue; Denies: fever(s) Eyes: Denies: change in vision Card: Denies: chest pain Musc: Reports: back pain Nando/Lymph: Denies: easy bruising Medications/Allergies Allergies Allergy/AdvReac Type Severity Reaction Status Date / Time azithromycin [From Zithromax] Allergy Intermediate ALGY-Rash Verified 03/25/24 06:40 aloe vera Allergy Unknown Unknown Verified 03/25/24 06:40 coconut Allergy Unknown Unknown Verified 03/25/24 06:40 PFSH PHYSICAL MEDICINE SPECIALIST 2 PFSH: Medical History Depression with anxiety Social History (Updated 03/25/24 @ 06:51 by Noah Shields MD) Smoking and tobacco/nicotine status: current every day tobacco/nicotine user cigarettes Packs smoked per day: 1 Years cigarettes smoked: 11 Quit status (tobacco/nicotine): has tried quititng Number of times tried to quit tobacco: 1 Second hand smoke exposure: Yes Alcohol intake: never Substance/Drug Use: current Substance/Drug use frequency: daily Additional social history: Uses marijuana regularly Adopted: No Caregiver/support person: No Lives independently: No Current occupational status: employed Sexually active: Yes Do you think of yourself as: Straight/Heterosexual Current gender identity: Female Vitals/I&O/Wt Last Vital Signs O2 Del Method Room Air 03/25/24 06:00 Weight last 48 hrs Weight 213 lb Weight 213 lb Physical Exam 2 Const: COMMON NORMALS: patient oriented x3 and alert HENMT: COMMON NORMALS: moist oral mucous membranes HEAD & SCALP: normal to inspection Chest: COMMONS NORMALS: normal inspection of the chest Resp: COMMON NORMALS: clear to auscultation bilaterally AUSCULTATION: clear to auscultation bilaterally Cardio: COMMON NORMALS: regular rate and regular rhythm RATE: regular rate RHYTHM: regular rhythm GI: INSPECTION: Yes normal to inspection and Yes other (Gravid) Extremity: COMMON NORMALS: normal to inspection GENERAL: Yes edema (Trace) Neuro: COMMON NORMALS: patient oriented x3, moves all extremities and no sensory deficits noted SENSORIUM/ORIENTATION: Yes alert Psych: COMMON NORMALS: mental status grossly normal Skin: COMMON NORMALS: no rashes or lesions noted GENERAL SKIN EXAM: no rashes or lesions noted Data 03/25/24 05:35 03/25/24 05:35 Results Labs OB ([facility]): 2 Blood Type A Positive 06/30/23 Antibody Screen Negative 06/30/23 Hct 36.2 % (36-47) 03/25/24 Hgb 11.80 g/dL (11.27-16.99) 03/25/24 Rho(D) Type Positive 06/30/23 Plt Count 195 10^3/cmm (157-399) 03/25/24 TSH 3.33 uIU/mL (0.27-4.20) 06/10/21 Ser , Semi-Qnt 1.00 mIU/mL 06/30/23 HCG, Qual Positive (Negative) H 08/27/23 Urine Opiates Screen Negative ng/mL (Negative) 05/01/20 Ur Barbiturates Screen Negative ng/mL (Negative) 05/01/20 Ur Phencyclidine Scrn Negative ng/mL (Negative) 05/01/20 Ur Amphetamines Screen Negative ng/mL (Negative) 05/01/20 U Benzodiazepines Scrn Negative ng/mL (Negative) 05/01/20 Urine Cocaine Screen Negative ng/mL (Negative) 05/01/20 U Marijuana (THC) Screen Negative ng/mL (Negative) 05/01/20 Micro Urine Specimen 05/29/20 A&P Assessment and plan (1) 39 weeks gestation of : (2) History of : We discussed the risks of a section including the risk of bleeding, infection, and damage intra-abdominal organs. We once again reviewed as well as risk this morning especially in light of her 2 previous C-sections and scar tissue that is associated with that. She had no further questions and wishes to proceed. Attestations 2 Medical Necessity Statement*: I anticipate routine and post care Coding Level of Care Code Acute Code for Chg Fwd Diagnoses 39 weeks gestation of Z3A.39 History of Z98.891
[2024-03-25] MEDS: citric acid-sodium citrate 30 mL UDC PO (06:58)
[2024-03-25] MEDS: famotidine 20 mg/2 mL INJ IVP (06:59)
[2024-03-25] MEDS: metoclopramide 5 mg/mL SDV 2 mL 10 MG IVP ×2 (06:59→12:51)
[2024-03-25] MEDS: BUPivacaine 0.5% INJ 30 mL INJECTION (08:10)
--- NOTE | 2024-03-25 08:43 | PM.OP ---
Operative Report Date of procedure: March 25, 2024 Pre-op diagnosis: 23-year-old 3 para 2-0-0-2 at 39 weeks presenting for a repeat section Post-op diagnosis: Status post repeat low-transverse section Procedure done: Low-transverse section Specimens removed/disposition: 1. Female with a weight of 6 pounds 3 ounces and Apgars of 9, 9 2. Placenta with a three-vessel cord delivered intact Surgeon: Noah Shields MD Estimated blood loss (mL): 400 Complications: None Procedure: The patient was brought back to the operating room where she was prepped and draped in usual sterile fashion. Anesthesia was found to be adequate. A lower transverse skin incision was then made with a #10 blade. I then dissected down to the underlying subcutaneous tissue until arriving at the prerectal fascia. The fascia was then nicked with the scalpel bilaterally. The fascial incisions were then carried laterally with Olivo scissors. Attention was then turned to the superior aspect of the incision which was grasped with kochers and tented up away from the underlying rectus abdominis muscles. The muscles were then dissected away from the fascia manually, and later with Olivo scissors. Attention was then turned to the inferior aspect of the incision, and the fascia was dissected away from the underlying muscle in similar fashion. The rectus abdominis muscles were then spread manually. The peritoneum was entered manually. Excellent visualization of the uterus was noted. A lower transverse uterine incision was then made with a #10 blade. Upon arriving at the intrauterine cavity, the uterine incision was then extended manually. The was noted to be in vertex position. The baby was delivered without difficulty. After delivery of the head, the mouth and nose were suctioned at the site of the incision. There was no meconium. There was no nuchal cord. The baby was then completely delivered and placed on the abdomen. The cord was cut and clamped. The baby was then handed to the waiting nurse. The placenta was removed intact. The uterus was externalized. The intrauterine cavity was cleansed of any remaining debris. The uterine incision was reapproximated in 2 layers. The first layer was performed with 0 Vicryl in a running locked stitch. The second layer was an imbricating stitch also using 0 Vicryl. The uterus was replaced into the abdomen. The peritoneum was then irrigated with warm saline. I reexamined the uterine incision and found it to be hemostatic. The rectus abdominis muscles were then reapproximated using 0 Vicryl in a running stitch. The fascia was then reapproximated using 0 Vicryl in running stitch. The skin was reapproximated 4-0 Vicryl on a Nakul needle using a running subcuticular stitch. A sterile dressing was placed. All counts were correct x2. Both the mother and baby were in stable condition.
--- NOTE | 2024-03-25 08:55 | ANE.PACU2 ---
Inpatient post-anesthesia follow up: Airway intact: Yes Vital signs: Temperature 97.1 F Pulse Rate 62 Respiratory Rate 18 Blood Pressure 108/55 Pulse Oximetry 100 Oxygen Delivery Me thod Room Air Oxygen Flow Rate Fraction of Inspir ed Oxygen Hydration adequate: Yes Nausea and vomiting: No Pain level: 1 Mental status: Baseline
[2024-03-25] MEDS: dextrose 5%-lactated ringers 1,000 ML 125 ML IV ×2 (10:33→23:33)
[2024-03-25] MEDS: ondansetron 2 mg/ML SDV 2 mL 4 MG IVP ×2 (11:04→15:09)
[2024-03-25 12:32] LABS: Amphetamines Screen Urine Negative (Negative); Barbiturates Screen Urine Negative (Negative); Benzodiazepines Screen Urine Negative (Negative); Cocaine Screen Urine Negative (Negative); Opiate Screen Urine Negative (Negative); PCP Screen Urine Negative (Negative); THC Screen Urine Positive (Negative)
[2024-03-25] MEDS: ketorolac 30 mg/mL INJ IVP ×2 (15:08→21:19)
[2024-03-25] MEDS: lactated ringers 500 ML 999 ML IV (16:48)
[2024-03-25 21:45] LABS: Hematocrit 33.6 % (36-47); Mean Corpuscular HGB Conc 33.3 g/dL (30-55); Mean Corpuscular Hemoglobin 29.8 pg (27-33); Mean Corpuscular Volume 89.4 fl (85-98); Mean Platelet Volume 12.3 fL (7.4-10.4); Platelet Count 213 10^3/cmm (157-399); Red Blood Count 3.76 10^6/uL (3.85-5.65); Red Cell Distribution Width 13.2 % (12.1-15.1); White Blood Count 19.63 10^3/uL (3.29-11.43)
[2024-03-25] MEDS: acetaminophen 325 mg Tablet 650 MG PO (23:15)
[2024-03-26] MEDS: ketorolac 30 mg/mL INJ IVP (04:33)
[2024-03-26 04:36] VITALS: BP 114/58; PULSE 59; RESP 16; TEMP 36.1
[2024-03-26] MEDS: lactated ringers 1,000 ML 999 ML IV (07:04)
[2024-03-26] MEDS: docusate sodium 100 mg Capsule PO (09:37)
[2024-03-26] MEDS: ferrous sulfate EC 325 mg Tablet PO (09:37)
[2024-03-26] MEDS: ibuprofen 800 mg tablet PO (09:38)
[2024-03-26] MEDS: PRENATAL VIT NO.130/IRON/FOLIC 1 EACH TABLET PO (09:38)
[2024-03-26 09:42] VITALS: BP 130/86; PULSE 74; RESP 17; TEMP 36.7; O2SAT 97
--- NOTE | 2024-03-26 12:48 | P.DS_ITS ---
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 Her course was also unremarkable.Her bleeding was within normal limits.Her pain was well-controlled.She formula fed her baby.She passed flatus on the day of surgery.She tolerated advanced diet. Information Peripartum Data: Infant Delivery Method: Physical Exam Narrative: The patient is alert. She appears comfortable. Her heart has a regular rate and rhythm with no murmurs appreciated. Lungs are clear to auscultation bilaterally. Her fundus is firm and below the umbilicus. Urinary Catheter Management: Cervantes: Cath Placed During This Visit: yes, but has since been removed by the nurse Reason for Continuing Indwelling Catheter: Decision to DC Catheter Urinary Catheter Date of Insertion: 03/25/24 Urinary Catheter Time of Insertion: 07:13 Date Urinary Catheter Removed: 03/26/24 Time Urinary Catheter Discontinued: 08:50 Discharge Data Studies Completed and Pending Laboratory Results WBC 19.63 10^3/uL (3.29-11.43) H 03/25/24 21:20 RBC 3.76 10^6/uL (3.85-5.65) L 03/25/24 21:20 Hgb 11.20 g/dL (11.27-16.99) L 03/25/24 21:20 Hct 33.6 % (36-47) L 03/25/24 21:20 MCV 89.4 fl (85-98) 03/25/24 21:20 MCH 29.8 pg (27-33) 03/25/24 21:20 MCHC 33.3 g/dL (30-55) 03/25/24 21:20 RDW 13.2 % (12.1-15.1) 03/25/24 21:20 Plt Count 213 10^3/cmm (157-399) 03/25/24 21:20 MPV 12.3 fL (7.4-10.4) H 03/25/24 21:20 Neut % (Auto) 70.8 % 03/25/24 05:35 Lymph % (Auto) 20.2 % 03/25/24 05:35 [place] % (Auto) 6.5 % 03/25/24 05:35 Eos % (Auto) 1.0 % 03/25/24 05:35 Baso % (Auto) 0.4 % 03/25/24 05:35 Neut # (Auto) 9.87 10^3/uL (1.8-7.7) H 03/25/24 05:35 Lymph # (Auto) 2.8 10^3/uL (0.8-4.8) 03/25/24 05:35 [place] # (Auto) 0.9 10^3/uL (0.2-0.9) 03/25/24 05:35 Eos # (Auto) 0.1 10^3/uL (0.0-0.8) 03/25/24 05:35 Baso # (Auto) 0.1 10^3/uL (0.0-0.1) 03/25/24 05:35 Nucleated RBC % (auto) 0 % 03/25/24 05:35 Nucleated RBCs # 0.0 /100WBC 03/25/24 05:35 Creatinine Cancelled 03/25/24 05:35 Specific Shiro Cancelled 03/25/24 05:35 Urine pH Cancelled 03/25/24 05:35 Urine Oxidant Cancelled 03/25/24 05:35 Urine Opiates Screen Negative ng/mL (Negative) 03/25/24 05:35 Urine Opiates Level Cancelled 03/25/24 05:35 Urine Oxycodone Cancelled 03/25/24 05:35 U Methadone Metabolites Cancelled 03/25/24 05:35 Barbiturates Cancelled 03/25/24 05:35 Ur Barbiturates Screen Negative ng/mL (Negative) 03/25/24 05:35 Phencyclidine (PCP) Cancelled 03/25/24 05:35 Ur Phencyclidine Scrn Negative ng/mL (Negative) 03/25/24 05:35 Amphetamines Cancelled 03/25/24 05:35 Ur Amphetamines Screen Negative ng/mL (Negative) 03/25/24 05:35 Benzodiazepines Cancelled 03/25/24 05:35 U Benzodiazepines Scrn Negative ng/mL (Negative) 03/25/24 05:35 Cocaine Metabolite Cancelled 03/25/24 05:35 Urine Cocaine Screen Negative ng/mL (Negative) 03/25/24 05:35 U Marijuana (THC) Screen Positive ng/mL (Negative) H 03/25/24 05:35 U Marijuana Metabolites Cancelled 03/25/24 05:35 Abn Spec Valid Drug Scn Cancelled 03/25/24 05:35 Urine Drug Screen Note Cancelled 03/25/24 05:35 Ur Drug Screen Comment Cancelled 03/25/24 05:35 Blood Type A Positive 03/25/24 05:35 Rho(D) Type Rh positive 03/25/24 05:35 Antibody Screen Negative 03/25/24 05:35 Vitals Last Vital Signs Temp 98.0 F 03/26/24 09:42 Pulse 74 03/26/24 09:42 Resp 17 03/26/24 09:42 BP 130/86 03/26/24 09:42 Pulse Ox 97 03/26/24 09:42 O2 Del Method Room Air 03/26/24 09:42 Results Labs OB ([facility]): Blood Type A Positive 03/25/24 Antibody Screen Negative 03/25/24 Hct 33.6 % (36-47) L 03/25/24 Hgb 11.20 g/dL (11.27-16.99) L 03/25/24 Rho(D) Type Rh positive 03/25/24 Plt Count 213 10^3/cmm (157-399) 03/25/24 TSH 3.33 uIU/mL (0.27-4.20) 06/10/21 Ser , Semi-Qnt 1.00 mIU/mL 06/30/23 HCG, Qual Positive (Negative) H 08/27/23 Urine Opiates Screen Negative ng/mL (Negative) 03/25/24 Ur Barbiturates Screen Negative ng/mL (Negative) 03/25/24 Ur Phencyclidine Scrn Negative ng/mL (Negative) 03/25/24 Ur Amphetamines Screen Negative ng/mL (Negative) 03/25/24 U Benzodiazepines Scrn Negative ng/mL (Negative) 03/25/24 Urine Cocaine Screen Negative ng/mL (Negative) 03/25/24 U Marijuana (THC) Screen Positive ng/mL (Negative) H Micro Urine Specimen 05/29/20 Discharge Plan Discharge Patient Disposition: Home Condition: Stable Prescriptions: New ibuprofen 800 mg Tablet 800 mg PO TID Qty: 45 0RF hydrocodone-acetaminophen 5-325 mg Tablet 1 tab PO Q6H PRN (Reason: Moderate To Severe Pain) Qty: 25 0RF docusate sodium 100 mg Capsule 100 mg PO BID Qty: 14 0RF Discharge Orders: Discharge Order (Routine); Ordered 03/26/24 Ordered By: Noah Shields Referrals: Noah Shields MD [Physician] - 4-7 days Discharge Diet: Usual diet Discharge Activity: Limit activity as instructed Patient Instructions: Depression (DC), Shaken Baby Syndrome (DC), Safe Sleeping for Infants (DC), Hemorrhage (DC), OB - Sam, OB Discharge Report, OB Food/Drug Interaction Guide, OB Care at Home, Opioid Safety, Abnormal Bleeding 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
[2024-03-26 14:15] VITALS: BP 129/68; PULSE 69; RESP 16; TEMP 36.6
== END 2024-03-26 14:18 | disposition home or self-care (01) | DRG 787 ==
PROVIDERS: Admitting Provider Family Medicine; PCP Registered Nurse; Visit Provider Family Medicine
PROC: 10D00Z1 Extraction of Products of Conception, Low, Open Approach (ICD-10-PCS; CPT 59514; principal; 2024-03-25 07:30)
DX: O98.32 Other infections with a predominantly sexual mode of transmission complicating childbirth (principal); O99.324 Drug use complicating childbirth; A63.0 Anogenital (venereal) warts; F12.90 Cannabis use, unspecified, uncomplicated; O99.334 Smoking (tobacco) complicating childbirth; F17.210 Nicotine dependence, cigarettes, uncomplicated; Z3A.39 39 weeks gestation of pregnancy; Z37.0 Single live birth; O34.211 Maternal care for low transverse scar from previous cesarean delivery; N85.8 Other specified noninflammatory disorders of uterus
CPT/HCPCS: 36415; 51702; 59409; 80306; 85025; 85027; 86850; 86900; 96374; 96376; J1885; J2274; J2371; J2405; J2765; J3490; J7120; J7121

== ENCOUNTER 2025-01-22 23:55 | Emergency (ER) | payer MEDICAID, SELFPAY ==
[2025-01-23] VITALS: BP 124/79; PULSE 66; RESP 20; TEMP 36.8; O2SAT 100; BMI 29.9
--- NOTE | 2025-01-23 00:03 | XRR_ITS ---
PROCEDURE INFORMATION: Exam: XR Left Wrist Exam date and time: 01/23/2025 2:05 AM Age: 24 years old Clinical indication: Injury or trauma; Sprain or strain; Patient sustained a fall and braced herself with left hand hyperextending wrist. C/O diffuse pain. TECHNIQUE: Imaging protocol: Radiologic exam of the left wrist. Views: 3 or more views. COMPARISON: No relevant prior studies available. FINDINGS: Bones/joints: Normal. Soft tissues: Normal. XR/XR wrist LT min 3V* [id number] IMPRESSION: No acute findings.
--- NOTE | 2025-01-23 02:10 | ED_ITS ---
HPI - Extremity Problem General: Chief complaint: Extremity Injury, Upper Stated complaint: Left Wrist Injury Time Seen by Provider: 01/23/25 02:06 History of Present Illness: 24-year-old female who fell on outstretc hed hand injuring her left wrist. The wrist is swollen and painful. Related Data Previous Rx's ?Medication ?Instructions ?Recorded docusate sodium 100 mg capsule 100 mg PO BID #14 caps 03/26/24 ibuprofen 800 mg tablet 800 mg PO TID #45 tabs 03/26 hydrocodone 5 mg-acetaminophen 325 1 tab PO Q6H PRN Mo derate To 01/23/25 mg tablet Severe Pain #7 tabs Allergies Allergy/AdvReac Type Severity Reaction Status Date / Time azithromycin (From Zithromax) Allergy Intermediate ALGY-Rash Verified 01/23/25 00:03 aloe vera Allergy Unknown Unknown Verified 01/23/25 00:03 coconut Allergy Unknown Unknown Verified 01/23/25 00:03 [facility] ED PFSH: Medical History Depression with anxiety Social History Smoking and tobacco/nicotine status: current every day tobacco/nicotine user cigarettes Packs smoked per day: 1 Years cigarettes smoked: 11 Quit status (tobacco/nicotine): has tried quititng Number of times tried to quit tobacco: 1 Second hand smoke exposure: Yes Alcohol intake: never Substance/Drug Use: current Substance/Drug use frequency: daily Additional social history: Uses marijuana regularly Adopted: No Caregiver/support person: No Lives independently: No Current occupational status: employed Sexually active: Yes Do you think of yourself as: Straight/Heterosexual Current gender identity: Female Physical Exam Const: COMMON NORMALS: no acute distress GENERAL APPEARANCE: cooperative; not ill appearing and not frail appearing Eye: COMMON NORMALS: Equal, round and reactive pupils present and EOMs intact bilaterally PUPIL: Yes Equal, round and reactive pupils present Neck/C-Spine: GENERAL: Yes trachea midline Resp: COMMON NORMALS: normal respiratory effort, No retractions, No use of accessory muscles and clear to auscultation bilaterally AUSCULTATION: clear to auscultation bilaterally Cardio: COMMON NORMALS: regular rate and regular rhythm RATE: regular rate RHYTHM: regular rhythm Extremity: NARRATIVE EXTREMITY EXAM: Exam the left upper extremity reveals mild swelling at the wrist. There is tenderness to palpation of the radial styloid. Minimal [place] tenderness. No deformity. Capillary refill and sensation are intact distally. Radial pulses normal. Neuro: CECILIA COMA SCALE: document GCS findings Cecilia coma scale eye opening: Spontaneous [place] coma scale verbal response: Orientated Cecilia coma scale motor response: Obey commands Cecilia coma scale total score: 15 SENSORY EXAM: Yes extremities (intact) Skin: COMMON NORMALS: no rashes or lesions noted GENERAL SKIN EXAM: no rashes or lesions noted Course Vital Signs: Vital signs: Vital Signs Temperature 98.2 F 01/23/25 00:00 Pulse Rate 66 01/23/25 00:00 Respiratory Rate 20 H 01/23/25 00:00 Blood Pressure 124/79 01/23/25 00:00 Pulse Oximetry 100 01/23/25 00:00 Oxygen Delivery Me thod Room Air 01/23/25 00:00 MDM - Extremity (Nontraumatic) Medical Decision Making X-ray shows soft tissue swelling with a completely nondisplaced hairline fracture of the radial styloid. She is placed in a Velcro wrist brace for stabilization. She is to use this as a cast. Follow-up with orthopedics. Ice XR interpretation done by ED provider, pending radiology final review Discharge Plan Discharge Patient Disposition: Home Clinical Impression: Closed fracture of styloid process of radius Qualifiers: Encounter type: initial encounter Fracture alignment: nondisplaced Laterality: left Qualified Code(s): S52.515A - Nondisplaced fracture of left radial styloid process, initial encounter for closed fracture Condition: Stable Prescriptions: Continued hydrocodone-acetaminophen 5-325 mg Tablet 1 tab PO Q6H PRN (Reason: Moderate To Severe Pain) Qty: 7 0RF No Action ibuprofen 800 mg Tablet 800 mg PO TID Qty: 45 0RF docusate sodium 100 mg Capsule 100 mg PO BID Qty: 14 0RF Discharge Orders: Discharge ED (Routine); Ordered 01/23/25 Ordered By: Enrico Soler Referrals: Samuel Valdes DO [Physician] - 4-7 days Michelle Whitney FNP [Primary Care Provider] - Patient Instructions: Wrist Fracture in Adults (ED), Opioid Safety, Pain Management Activity Restrictions/Additional Instructions: Stay in your brace at all times except for bathing until seen by orthopedics. This includes sleeping. Call in the morning for a follow-up appointment with orthopedics at the number above. Ice for pain and swelling. Pain medication for moderate to severe pain. Tylenol for mild to moderate pain. 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
[2025-01-23 02:49] VITALS: RESP 17; O2SAT 98
[2025-01-23] MEDS: oxyCODONE-APAP 5-325 mg Tablet 2 TAB PO (02:49)
[2025-01-23 02:50] VITALS: BP 118/64; PULSE 89; RESP 16; O2SAT 97
== END 2025-01-23 02:54 | disposition home or self-care (01) ==
PROVIDERS: Emergency Provider Emergency Medicine; PCP Registered Nurse
DX: S52.515A Nondisplaced fracture of left radial styloid process, initial encounter for closed fracture (principal); W19.XXXA Unspecified fall, initial encounter
CPT/HCPCS: 73110; 99283